=== PATIENT | female | born 1955 | race Caucasian/White ===

== ENCOUNTER 2022-03-18 13:53 | Outpatient (CLI) | payer MEDICARE, SELFPAY ==
--- NOTE | 2022-03-18 06:00 | DI.RAD_ITS ---
Exam(s) XR PAIN CLINIC CERVICAL SP 2V EXAM: XR PAIN CLINIC CERVICAL SP 2V CLINICAL HISTORY: Dx: Cervical Spondylosis TECHNIQUE: 2D and realtime digital imaging was performed. Radiologist not present. CONTRAST MATERIAL: None. COMPARISON: No exams were available for comparison FINDINGS: Fluoroscopy was provided for pain management therapy. Please refer to procedure report or details. Cumulative dose: Ka,r=1.62 mGy IMPRESSION: RADIATION DOSE DELIVERED:
[2022-03-18 14:20] VITALS: BP 105/64; PULSE 60; RESP 20; TEMP 36.6; O2SAT 96
--- NOTE | 2022-03-18 14:53 | PDOC.PAIN_ITS ---
Date of service: 03/18/22 Time of Service: 15:59 Pain Clinic Procedure Note Procedure Note Procedure Note: PROCEDURE NOTE LEFT SIDED CERVICAL MEDIAL BRANCH BLOCKS Date of Service: March 18, 2022 Patient: SASHA RUBIO Provider: Kartik Grant DO, MPH SASHA RUBIO has been referred to the [facility] for cervical medial branch blocks. Pre-operative diagnosis: Cervical Spondylosis without Myelopathy Post-operative diagnosis: Same Pre-procedure pain: VAS= 8/10 COMMENTS: She was previously evaluated in our clinic. SASHA was interviewed and the medical record were reviewed. There were no medical, pharmacologic, radiographic or other structural contraindications to attempting fluoroscopically guided local anesthetic cervical medial branch blocks. Risks and potential side effects were discussed. We also discussed the potential benefit(s) of the procedure with SASHA, and his voiced concerns were addressed. After she was completely informed about the procedure, the printed consent form was signed. A standard time-out procedure was performed. SASHA was placed in the lateral decubitus position on the fluoroscopy table with the effected side up. Automated blood pressure cuff and pulse oximeter were applied. The skin entry points for approaching the anatomic target points of the segmental medial branches of Left C2-C5 were identified with fluoroscopy and marked. The skin at the target site area was thoroughly prepared with Chlorhexadine. The skin was then draped. Next, a 25 gauge 1.5 spinal needle was placed under fluoroscopic guidance down on to the target point (the articular pillar) for each respective segmental medial branch. Position was confirmed in A/P and lateral views. Aspiration revealed no blood or clear fluid. Next, 0.25ml of omnipaque 240 was injected at each level. No contrast following a vascular or neural pattern was visualized under continuous fluoroscopy. Next, 0.25 ml of preservative-free 0.5% bupivicaine was injected at each level. (49 mls of Omnipaque was wasted) SASHA's vital signs were stable throughout the procedure and were as recorded in the docflowsheet by the nursing staff. Provacative testing using the Modified Whiting's facet loading test Left side Directly before the block VAS (0-10) = 8/10 5 minutes after the block VAS (0-10) = 3/10 Percentage relief obtained with this diagnostic block 80% Any improved physical functioning directly after the blocks? She can move her neck much better Follow up plans and appointments were discussed with SASHA. SASHA was instructed to keep careful note of how the usual pain was modified by these injections. Specifically, the patient was asked to keep a pain diary for the next 24 hours using a numeric pain scale of 0-10 and report these results at the follow-up visit. Post procedure instruction was given as documented in the nursing documentation and having met discharge criteria, he was discharged from the [facility] Management [facility]. Based on the medial branches blocked today, if they patient has adequate relief and we are able to proceed to radiofrequency ablation, the treatment should re sult in the denervation of the Left C2-C3, C3-C4, and C4-C5 facet joints. We would expect to denervate a total of 3 facets during the radiofrequency ablation. COMMENTS: He will call back with his 0-4 hour post-procedure pain scores. Post- procedure pain: VAS= 3/10 Kartik Grant DO, MPH ABPMR-subspecialty board certification in Pain Medicine [facility]
[2022-03-18] MEDS: Bupivacaine 0.5% Pres-Free 10 ML VIAL IJ (15:12)
[2022-03-18 15:13] VITALS: BP 129/83; PULSE 89; RESP 13; O2SAT 100
[2022-03-18] MEDS: Omnipaque 240 MG/ML 50 ML BTL IJ (15:13)
== END 2022-03-18 13:54 | disposition home or self-care (01) ==
LOC: PC 13:54
PROVIDERS: PCP Internal Medicine; Visit Provider Preventive Medicine Occupational Medicine
DX: M47.812 Spondylosis without myelopathy or radiculopathy, cervical region (principal); M54.2 Cervicalgia
CPT/HCPCS: 64490; 64491; 64492; 72040; Q9967

== ENCOUNTER 2022-05-07 10:25 | Outpatient (CLI) | payer MEDICARE, SELFPAY ==
--- NOTE | 2022-05-07 07:30 | DI.RAD_ITS ---
Exam(s) XR PAIN CLINIC CERVICAL SP 2V EXAM: XR PAIN CLINIC CERVICAL SP 2V CLINICAL HISTORY: Dx: Cervical Spondylosis TECHNIQUE: 2D and realtime digital imaging was performed. Radiologist not present. CONTRAST MATERIAL: None. COMPARISON: No exams were available for comparison FINDINGS: Fluoroscopy was provided for pain management therapy. Please refer to procedure report or details. Radiation Exposure Index: Ka,r=2.35 mGy IMPRESSION: As above. RADIATION DOSE DELIVERED:
[2022-05-07 10:38] VITALS: BP 110/68; PULSE 81; RESP 20; TEMP 36.8; O2SAT 99
--- NOTE | 2022-05-07 11:17 | PDOC.PAIN_ITS ---
Date of service: 05/07/22 Time of Service: 12:27 Pain Clinic Procedure Note Procedure Note Procedure Note: CERVICAL MEDIAL BRANCH BLOCKS #2 SASHA RUBIO has been referred to the Pain Management Center for cervical medial branch blocks. COMMENTS: She did very well with her first CMBB. Pre-procedure pain VAS was 10/10 Dx: Cervical spondylosis without myelopathy JOANNE was interviewed and the medical record reviewed. There were no medical, pharmacologic, radiographic or other structural contraindications to attempting fluoroscopically guided local anesthetic cervical medial branch blocks. Risks and expected side effects as well as potential benefit of the procedure were reviewed with JOANNE, and JOANNE's voiced concerns addressed. The printed consent form was signed and witnessed. Standard time-out procedure was performed. Louiseas placed in the Right lateral decubitus position on the fluoroscopy table and automated blood pressure cuff and pulse oximeter applied. The skin entry points for approaching the anatomic target points of the segmental medial branches of Left Third Occipital Nerve (C2), C3, C4, and C5 were identified with fluoroscopy and marked. Following thorough Chlorhexadine preparation of the skin and draping and 1% lidocaine infiltration of the skin entry points and subcutaneous tissues, a 25 gauge spinal needle was placed under fluoroscopic guidance down on to the target point for each respective segmental medial branch. Position was confirmed in A/P and leteral views with 0.25ml of omnipaque 240 injected at each level. At each point I injected 0.3ml 0.5% bupivicaine. Joceline vital signs were stable throughout the procedure and were as recorded in the docflowsheet by the nursing staff. Follow up plans and appointments were discussed with JOANNE. JOANNE was instructed to keep careful note of how the usual pain was modified by these injections. Specifically, the patient was asked to keep a pain diary for the next 24 hours using a numeric pain scale of 0-10 and report these results at the follow-up visit. Post procedure instruction was given as documented in the nursing documentation and having met discharge criteria, Joceline was discharged from the Pain Management Center. Based on the medial branches blocked today, if they patient has adequate relief and we are able to proceed to radiofrequency ablation, the treatment should result in the denervation of the left C2-C3, C3-C4, and C4-C5 FACET JOINTS. We would expect to denervate a total of 3 facets during the radiofrequency ablation. COMMENTS: Post-procedure pain VAS was 8/10. Kartik Grant DO, MPH ABPMR-Pain Management [facility] CC: Seble Holman
[2022-05-07] MEDS: Omnipaque 240 MG/ML 50 ML BTL IJ (11:50)
[2022-05-07] MEDS: Lidocaine 2% Pres-Free 5 ML VIAL IJ (11:50)
[2022-05-07 11:55] VITALS: BP 121/58; PULSE 81; RESP 15; O2SAT 100
== END 2022-05-07 10:26 | disposition home or self-care (01) ==
LOC: PC 10:26
PROVIDERS: PCP Internal Medicine; Visit Provider Preventive Medicine Occupational Medicine
DX: M47.812 Spondylosis without myelopathy or radiculopathy, cervical region (principal); M54.2 Cervicalgia
CPT/HCPCS: 64490; 64491; 72040; Q9967

== ENCOUNTER 2022-05-20 12:35 | Outpatient (CLI) | payer MEDICARE, SELFPAY ==
[2022-05-20 12:59] VITALS: BP 112/67; PULSE 63; RESP 20; TEMP 36.6; O2SAT 100
[2022-05-20] MEDS: fentaNYL 100 MCG/2 ML VIAL IVP (13:42)
[2022-05-20] MEDS: Midazolam 2 MG/2 ML VIAL IVP (13:43)
[2022-05-20] MEDS: Lactated Ringers 500 ML 80 ML IV (13:43)
--- NOTE | 2022-05-20 14:06 | DI.RAD_ITS ---
Exam(s) XR PAIN CLINIC CERVICAL SP 2V EXAM: XR PAIN CLINIC CERVICAL SP 2V CLINICAL HISTORY: Dx: Cervical Spondylosis. TECHNIQUE: Fluoroscopy was provided for the referring physician for guidance with performing pain cl inic injection procedure. COMPARISON: No exams were available for comparison FINDINGS: Please see procedure note for details. Fluoro time: 46.1 seconds RADIATION DOSE DELIVERED: angel Parks=3.34 mGy
[2022-05-20 14:11] VITALS: BP 138/69; PULSE 66; RESP 18; O2SAT 96
[2022-05-20] MEDS: Dexamethasone Sod. Phos./Pres-Free 10 MG/ML VIAL IJ (14:28)
[2022-05-20] MEDS: Bupivacaine 0.5% Pres-Free 10 ML VIAL IJ (14:29)
[2022-05-20] MEDS: Lidocaine 2% Pres-Free 5 ML VIAL IJ (14:29)
--- NOTE | 2022-05-26 14:31 | PDOC.PAIN_ITS ---
Date of service: 05/20/22 Time of Service: 14:20 Pain Clinic Procedure Note Procedure Note Procedure Note: Cervical Radiofrequency with AVENOS Machine PROCEDURE NOTE Date of Service: May 20, 2022 Patient: SASHA RUBIO Provider: Kartik Grant DO, MPH Pre Operative Diagnosis: Cervical Spondylosis without Myelopathy Post Operative Diagnosis: Same Pre-procedure pain: VAS 10/10 PROCEDURE: 1. Left/Right C2-C3 facet joint radiofrequency denervation 2.Left/Right C3-C4 facet joint radiofrequency denervation 3.Left/Right C4-C5 facet joint radiofrequency denervation SASHA RUBIO was brought to the procedure suite and placed on the exam table in a comfortable lateral recumbent position. The place for the needle placement was obtained by manual palpation as well as radiographic confirmation. The sterile field was prepped by chlorhexidine and sterile drapes. Local anesthesia, both superficial and deep was provided by local infiltration of 3 ml Lidocaine 1%. Using fluoroscopic guidance, A 17g 50 mm radiofrequency introducer needle with a 2 mm active tip was placed overlying the [right/left] C4 cervical vertebra from the lateral approach and was advanced until bony contact was felt with the articular pillar. Attempted aspiration revealed no blood or cerebrospinal fluid. Motor testing was then performed with 2.0 volts and no upper extremity motor stimulation was observed. 1 ml of 2% Lidocaine was injected through the RF needle. A radiofrequency lesion of the LEFT medial branch of C2 (Third Occipital Nerve) was then performed at 80 degrees Celsius for 2 minutes and 30 seconds. The same procedure was repeated for LEFT C3, C4 and C5 medial branches. POST PROCEDURE EVALUATION: IMPRESSION: 1. Medication given is documented in the MAR 2. Follow up plan: We will call the patient in 1-3 weeks. 3. Estimated Blood Loss: <5ml 4. Fluoroscopy time: Documented in the EMR Follow up plans and appointments were discussed with the SASHA . Post procedure instruction was given as documented in nursing documentation and marinelli jonathan met discharge criteria, SASHA was discharged from the Pain Management Center. COMMENTS: No apparent complications. Post-procedure pain: VAS=5_/10. I personally performed this entire procedure. Kartik Grant DO, MPH [facility]-Pain Management [facility]
== END 2022-05-20 12:36 | disposition home or self-care (01) ==
LOC: PC 12:36
PROVIDERS: PCP Internal Medicine; Visit Provider Preventive Medicine Occupational Medicine
DX: M47.812 Spondylosis without myelopathy or radiculopathy, cervical region (principal)
CPT/HCPCS: 64633; 64634; 72040; J2250; J3010

== ENCOUNTER 2022-10-05 15:09 | Outpatient (CLI) | payer MEDICARE, SELFPAY ==
--- NOTE | 2022-10-05 | DI.RAD_ITS ---
Exam(s) XR WRIST RT COMPLETE EXAM: XR WRIST RT COMPLETE CLINICAL HISTORY: LUMP ON R WRIST--R22.31. TECHNIQUE: 2D digital imaging was performed. Three views. COMPARISON: No exams were available for comparison FINDINGS: BONES: No acute fracture is present. No bony destructive lesion is seen. JOINTS: The carpal bones are normally aligned. SOFT TISSUE: Focal area of swelling at the ulnar aspect of the wrist. Chronic appearing calcificatio n adjacent to the triquetrum. IMPRESSION: Medial soft tissue swelling. DATA REPOSITORY: RADIATION DOSE DELIVERED:
== END 2022-10-05 15:29 ==
LOC: DI 15:17
PROVIDERS: PCP Internal Medicine; Visit Provider Radiology Radiation Oncology
DX: M79.89 Other specified soft tissue disorders (principal); R22.31 Localized swelling, mass and lump, right upper limb
CPT/HCPCS: 73110

== ENCOUNTER 2022-12-25 08:02 | Day surgery (SDC) | payer OTHER, SELFPAY ==
[2022-12-25 08:10] VITALS: BP 131/84; PULSE 81; RESP 16; TEMP 36.5; O2SAT 97
[2022-12-25] MEDS: Tropicam./Phenyleph. (1/2.5%) 5 ML BTL OS ×3 (08:19→08:30)
--- NOTE | 2022-12-25 08:32 | ANES.PREOP_ITS ---
General Info Date of Service Date Performed: 12/25/22 Height: 5 ft 6 in Weight: 89.2 kg Body Mass Index (BMI): 31.7 Surgical Procedure: Operation Date: 12/25/22 09:55 Proposed Procedure Side Surgeon p Cataract Extraction with IOL Implant Left Brodie Wayne MD Meds Allergies and Home Medications Allergies Allergy/AdvReac Type Severity Reaction Status Date / Time morphine Allergy Intermediate Hives Verified 12/25/22 08:14 oxycodone Allergy Unknown Verified 12/25/22 08:14 tramadol Allergy Unknown Verified 12/25/22 08:14 Home Medication Medication Instructions Recorded atorvastatin 20 mg tablet 20 mg PO DAILY 08/17/19 cyclobenzaprine 10 mg tablet 10 mg PO HS 08/17/19 duloxetine 60 mg capsule,delayed 60 mg PO DAILY 08/17/19 release sprinkle ketoconazole 2 % shampoo 1 applic topical .once daily 08/17/19 ketoconazole 2 %-hydrocortisone 1 applic topical BID 08/17/19 2.5 % topical cream rabeprazole 20 mg tablet,delayed 20 mg PO DAILY 08/17/19 release calcium carbonate 600 mg calcium 600 mg PO DAILY 09/26/19 (1,500 mg) tablet (Calcium) omega-3 fatty acids 1,000 mg 1,200 mg PO DAILY 09/26/19 capsule (Fish Oil Concentrate) biotin 1 mg tablet 1 mg PO DAILY 11/05/21 cholecalciferol (vitamin D3) 25 25 mcg PO DAILY 11/05/21 mcg (1,000 unit) tablet hydrocortisone 2.5 % topical cream 1 applic topical BID PRN 11/05/21 lorazepam 0.5 mg tablet 0.5 mg PO DAILY PRN 11/05/21 magnesium oxide 400 mg (241.3 mg 400 mg PO DAILY 11/05/21 magnesium) tablet riboflavin (vitamin B2) 100 mg 100 mg PO BID 11/05/21 tablet sumatriptan succinate 50 mg tablet See Rx Instructions PO .COMPLEX 11/05/21 Current Visit Medications: Current Medications Generic Name Dose Route Start Last Admin Trade Name Freq PRN Reason Stop Dose Admin Acetaminophen 1,000 mg 12/25/22 06:00 Acetaminophen 500 Mg Tab PO 01/24/23 05:59 Q4H PRN PRN Balanced Salt Solution 500 ml 12/25/22 06:00 Balanced Salt Soln.-Plus 500 Ml Bag OP 01/24/23 05:59 DIRECTED KWABENA Miscellaneous Medication 0 ml 12/25/22 06:00 Prednisolone 1%, Moxifloxacin 0.5%, Nepafenac 0.1% 5ml Btl OS 01/24/23 05:59 DIRECTED KWABENA Miscellaneous Medication 0 ml 12/25/22 06:00 12/25/22 08:30 Tropicam./Phenyleph. (1/2.5%) 5 Ml Btl OS 01/24/23 05:59 1 drp DIRECTED KWABENA Administration Tetracaine HCl 0 ml 12/24/22 09:00 Tetracaine 0.5% 5 Ml Btl OS 01/23/23 08:59 DIRECTED KWABENA PFSH Active Problems Active Problems: Problem Status Onset Code Posterior subcapsular age-related cataract of left eye H25.042 Cortical age-related cataract, left eye H25.012 Nuclear age-related cataract, left eye H25.12 Migraine headache without aura G43.009 Cervical spondylosis without myelopathy M47.812 Medical History Medical History Anxiety Barretts esophagus Capillary leak syndrome Cervical radiculopathy Colon cancer screening Conjunctival edema Depressive disorder Drug allergy Encounter for preventative adult health care examination Endometriosis H/O screening mammography History of prediabetes per pt. states this is no longer an issue Hx of hemorrhoids Hx of migraines Hyperlipidemia Low back pain Malignant neoplasm of female breast 07/21/21 Obesity Pain, joint, shoulder, left UTI (urinary tract infection) Surgical History Surgical History H/O: hysterectomy History of Newton fundoplication Tobacco Smoking/Tobacco Use Status: Former Tobacco Use Alcohol Alcohol Intake: current Alcohol intake frequency: holidays/special occasions only Substance Use Substance use: Never Substance use type: does not use Vital Signs and Lab Results Vital Signs Most Recent Vital Signs in EMR: Most Recent Vital Signs Temp Pulse Resp BP Pulse Ox 36.5 C 81 16 131/84 97 12/25/22 08:10 12/25/22 08:10 12/25/22 08:10 12/25/22 08:10 12/25/22 08:10 Lab Results Blood Type / Crossmatch: No Data to Display Complete Blood Count: No Data to Display Complete Metabolic Panel: No Data to Display Liver Function Panel: No Data to Display Coagulation Panel: 2 No Data to Display Cardiac Panel: No Data to Display Arterial Blood Gas: No Data to Display Venous Blood Gas: No Data to Display Pancreas Panel: No Data to Display Thyroid Panel: No Data to Display Infectious Disease: No Data to Display Blood Cultures: No Data to Display Toxicology Panel: No Data to Display Anesthesia Assessment and Plan Anesthesia History Personal History: No History of Anesthesia Complications Family History: No Family History of Anesthesia Complications Exercise Tolerance Exercise Tolerance: Metabolic Equivalents>4 Pertinent Negatives Pertinent Negatives: No Symptoms of GERD, No Major Cardiovascular Symptoms or Complaints and No Major Pulmonary Symptoms or Complaints Cardiac & Pulmonary Exam Cardiac Exam: Normal S1/S2 Heart Sounds Pulmonary Exam: Clear Bilateral Breath Sounds Implantable Cardiac Device Does patient have a Pacemaker or an ICD?: No Airway Exam Known Difficult Airway: No Mallampati Class: 2 Mouth Opening: Normal (> 3cm) Thyromental Distance: Greater than 3 cm Neck Range of Motion: Full ROM Neck Circumference: Normal Teeth Condition: Normal Dentition ASA Classification ASA Score: ASA 2 Emergency Case?: No NPO Status NPO Status: NPO Clears >2 hours, Solids >8 hours Anesthesia Plan Resuscitation Status: Full Code Anesthesia Technique: MAC Anesthesia Airway Planned: Natural Airway Monitors Used: Standard Monitors
[2022-12-25 08:49] VITALS: BMI 31.7
[2022-12-25] MEDS: Balanced Salt Soln.-PLUS 500 ML BAG OP (09:02)
[2022-12-25] MEDS: Lidocaine 1% Pres-Free 5 ML VIAL (09:04)
[2022-12-25] MEDS: Duovisc Viscoelastic System EACH 1 EACH (09:05)
[2022-12-25] MEDS: Phenylephrine/Lidocaine (15/10) MG/ML 1 ML VIAL (09:07)
[2022-12-25] MEDS: Povidone-Iodine Ophth 30 ML BTL (09:08)
[2022-12-25 09:22] VITALS: BP 128/71; PULSE 79; RESP 18; TEMP 36.6; O2SAT 100
--- NOTE | 2022-12-25 09:22 | W.PM.DSUDISC ---
Date of service: 12/25/22 Time of Service: 09: Discharge Plan Disposition Patient Disposition: Home Discharge Details Attending Provider: Brodie Wayne Primary Care Provider: Seble Holman Home Meds and New Rx's Prescriptions: No Action calcium carbonate [Calcium 600] 600 mg calcium (1,500 mg) tablet 600 mg PO DAILY omega-3 fatty acids [Fish Oil Concentrate] 1,000 mg capsule 1,200 mg PO DAILY biotin 1 mg tablet 1 mg PO DAILY hydrocortisone 2.5 % cream 1 applic topical BID PRN lorazepam 0.5 mg tablet 0.5 mg PO DAILY PRN magnesium oxide 400 mg (241.3 mg magnesium) tablet 400 mg PO DAILY sumatriptan succinate 50 mg tablet See Rx Instructions PO .COMPLEX Rx Instructions: take 1 tab at onset of headache; if no relief may repeat 1 tab after at least 2 hrs; max = 4 tabs/24 hr PO riboflavin (vitamin B2) 100 mg tablet 100 mg PO BID cholecalciferol (vitamin D3) 25 mcg (1,000 unit) tablet 25 mcg PO DAILY atorvastatin 20 mg tablet 20 mg PO DAILY cyclobenzaprine 10 mg tablet 10 mg PO HS duloxetine 60 mg capsule, delayed rel sprinkle 60 mg PO DAILY ketoconazole-hydrocortisone 2-2.5 % cream 1 applic TP BID ketoconazole 2 % shampoo 1 applic TP .once daily rabeprazole 20 mg tablet,delayed release (DR/EC) 20 mg PO DAILY Discharge Instructions Stand Alone Forms: Post-op Topical Cataract, Josselin Prado (DSU) Discharge Orders Discharge Orders: Discharge Order (Routine); Ordered 12/25/22 Ordered By: Brodie Wayne DS: Diagnosis Discharge Diagnosis (1) Posterior subcapsular age-related cataract of left eye: Status: Resolved (2) Cortical age-related cataract, left eye: Status: Resolved (3) Nuclear age-related cataract, left eye: Status: Resolved
--- NOTE | 2022-12-25 09:23 | ROE_ITS ---
Date of service: 12/25/22 Time of Service: : Operative Note Operative Note DATE OF PROCEDURE: 12/25/22 PRE-OP DIAGNOSIS: Nuclear/cortical/posterior subcapsular cataract, left eye POST-OP DIAGNOSIS: same PROCEDURE: Cataract extraction using phacoemulsification with intraocular lens implant, left eye SURGEON: Brodie Wayne ANESTHESIA TYPE: Local By Surgeon and MAC Refer to Anesthesia Record PATHOLOGY: none sent COMPLICATIONS: None Patient was transported to: same day Patient's condition: stable Implants: Elie Clareon [id number] Indications: Progressive decreased vision due to cataract, left eye Procedure Description: CATARACT SURGERY OPERATIVE REPORT PREOPERATIVE DIAGNOSIS: Nuclear/cortical/posterior subcapsular cataract, left eye POSTOPERATIVE DIAGNOSIS: Same OPERATION: Cataract extraction using phacoemulsification with posterior chamber intraocular lens implant, left eye. IOL: IOL Registered Clinical Dietitian/Model: Elie Clareon [id number] IOL Power: + 22.0 diopters IOL Serial Number: [id number] Optic Diameter: 6.0mm Haptic/Overall Diameter: 13.0mm PHACO INFO: ElieThe [place] Timesurion Vision System with OZil and Active Fluidics Cumulative Dispersed Energy (CDE): 7.68 seconds SURGEON: rBodie Wayne MD, DARELL ANESTHESIA: Monitored Anesthesia Care (MAC), with local sub-tenon's anesthetic infiltration COMPLICATIONS: None SPECIMENS: None INDICATIONS FOR PROCEDURE: The patient is a 67-year-old lady with history of diminished visual acuity in her left eye secondary to the development of nuclear/cortical/posterior subcapsular cataract. She is significantly symptomatic that she desires cataract surgery and attempt to improve and maximize her vision. The option of cataract surgery was offered to the patient and she wished to proceed. See office notes for detailed information. PROCEDURE: The correct surgical eye was identified and marked as the left eye and the pupil was dilated in the preoperative area using mydriatics and cycloplegics. The dilated pupil size was 8.0 mm. The patient elected to pr oceed without oral sedation. The patient was brought to the operating room where cardiopulmonary monitoring was instituted and surgical time-out was performed, confirming the correct operative eye and IOL power. Topical anesthesia was administered and ophthalmic povidone-iodine 5% was instilled into the conjunctival fornices. The kevin-ocular area was prepped with Betadine 10% solution and draped in the usual sterile fashion for intraocular surgery, including an aperture drape. A Tegaderm transparent film dressing was cut in half and used to cover the lashes and lid margins. Care was taken to sequester the lashes and lid margins under the Tegaderm dressing. A lid speculum was placed between the lids of the operative eye and the Elie LuxOR Revalia operating microscope was maneuvered into position. Fantasma scissors were then used to make a conjunctival buttonhole approximately 6mm posterior to the limbus in the inferonasal quadrant. Blunt dissection was carried out to expose bare sclera, and a blunt-tipped sub-tenon?s anesthesia cannula was introduced and passed posteriorly along the globe where non- preserved plain lidocaine was injected into posterior sub-Tenon?s space. A sideport knife was used to make a paracentesis port. Intraocular phenylephrine/lidocaine was injected into the anterior chamber. The anterior chamber was then filled with viscoelastic. A keratome knife was used construct a two-plane clear corneal tunnel extending 2.0mm into clear cornea. A flap was raised on the anterior capsule and capsulorhexis forceps were used to complete a continuous curvilinear capsulorhexis of 5.0 mm. Balanced salt solution was then used to perform cortical cleaving hydrodissection and nuclear hydrodelineation until the lens could be freely rotated within the capsular bag. The lens nucleus was then disassembled and removed within the capsular bag and iris plane using phacoemulsification. Residual cortical material was removed using the irrigation/aspiration handpiece. The posterior capsule was carefully polished to remove as much residual lens epithelial cells as safely possible. The capsular bag was then inflated and the anterior chamber deepened with viscoelastic. The lens implant described above was inserted into the capsular bag using the Elie Autonome Injector. A Kuglen hook was used to dial the IOL into position. Residual viscoelastic was then removed first from posterior to the IOL, then from the anterior chamber using the I/A handpiece. The lens implant was noted to center nicely within the capsular bag. The incisions were stromally hydrated, and the anterior chamber was reformed using BSS. Then 0.5cc of moxifloxacin 1.0mg/ml were injected into the capsular bag and anterior chamber. The incisions were checked with a Weck spear and found to be secure. Several drops of ophthalmic povidone-iodine 5% were then applied to the eye followed by two drops of Imprimis combination prednisolone/moxifloxacin/nepafenac solution. The drapes were removed and a clear plastic protective eye shield was placed over the eye. The patient was then returned to Same Day Surgery in stable condition.
--- NOTE | 2022-12-25 09:41 | W.ANESPOSTOP ---
Postoperative Evaluation Date, Time and Location Date Performed: 12/25/22 Time Performed: 09:26 Patient Location: Day Surgery Unit Vital Signs Most Recent Imported Vital Signs: Most Recent Vital Signs Temp Pulse Resp BP Pulse Ox 36.6 C 79 18 128/71 100 12/25/22 09:22 12/25/22 09:22 12/25/22 09:22 12/25/22 09:22 12/25/22 09:22 Pain Score Most Recent Pain Score: Most Recent Pain Score Pain Level 0 12/25/22 09:22 Assessment Mental Status: Awake (Alert & Oriented to Patient Baseline) Airway and Respiratory Function: Patent airway with normal (patient baseline) respiratory exam Cardiovascular Function: Hemodynamically Stable Hydration Status: Adequately Hydrated Nausea & Vomiting: No Nausea or Vomiting Pain: Pt. Denies Any Pain Peripheral Nerve Block: Patient did not receive a nerve block
--- NOTE | 2022-12-25 12:21 | NUR.NOTE ---
Patient called to report she had a bubble in the white part of her eye making it had to close. MD Dr. Wayne made aware. Nursing Note:
== END 2022-12-25 09:45 | disposition home or self-care (01) ==
LOC: SUR 08:08
PROVIDERS: PCP Internal Medicine; Visit Provider Ophthalmology
PROC: (CPT 66984; principal; 2022-12-25 09:45)
DX: H25.042 Posterior subcapsular polar age-related cataract, left eye (principal); H25.012 Cortical age-related cataract, left eye; H25.12 Age-related nuclear cataract, left eye
CPT/HCPCS: 66984; V2632

== ENCOUNTER 2023-01-08 06:00 | Day surgery (SDC) | payer MEDICARE, SELFPAY ==
[2023-01-08 06:33] VITALS: BP 111/65; PULSE 68; RESP 16; TEMP 36.6; O2SAT 99
[2023-01-08] MEDS: Tropicam./Phenyleph. (1/2.5%) 5 ML BTL OD ×3 (06:39→06:51)
--- NOTE | 2023-01-08 07:06 | ANES.PREOP_ITS ---
General Info Date of Service Date Performed: 01/08/23 Height: 5 ft 6 in Weight: 90.5 kg Body Mass Index (BMI): 32.2 Surgical Procedure: Operation Date: 01/08/23 07:40 Proposed Procedure Side Surgeon p Cataract Extraction with IOL Implant Right Brodie Wayne MD Meds Allergies and Home Medications Allergies Allergy/AdvReac Type Severity Reaction Status Date / Time morphine Allergy Intermediate Hives Verified 01/06/23 10:53 oxycodone Allergy Unknown Verified 01/06/23 10:53 tramadol Allergy Unknown Verified 01/06/23 10:53 Home Medication Medication Instructions Recorded atorvastatin 20 mg tablet 20 mg PO DAILY 08/17/19 cyclobenzaprine 10 mg tablet 10 mg PO HS 08/17/19 duloxetine 60 mg capsule,delayed 60 mg PO DAILY 08/17/19 release sprinkle rabeprazole 20 mg tablet,delayed 20 mg PO DAILY 08/17/19 release calcium carbonate 600 mg calcium 600 mg PO DAILY 09/26/19 (1,500 mg) tablet (Calcium) omega-3 fatty acids 1,000 mg 1,200 mg PO DAILY 09/26/19 capsule (Fish Oil Concentrate) biotin 1 mg tablet 1 mg PO DAILY 11/05/21 cholecalciferol (vitamin D3) 25 25 mcg PO DAILY 11/05/21 mcg (1,000 unit) tablet hydrocortisone 2.5 % topical cream 1 applic topical BID PRN 11/05/21 magnesium oxide 400 mg (241.3 mg 400 mg PO DAILY 11/05/21 magnesium) tablet riboflavin (vitamin B2) 100 mg 100 mg PO BID 11/05/21 tablet sumatriptan succinate 50 mg tablet See Rx Instructions PO .COMPLEX 11/05/21 Current Visit Medications: Current Medications Generic Name Dose Route Start Last Admin Trade Name Freq PRN Reason Stop Dose Admin Acetaminophen 1,000 mg 01/08/23 06:00 Acetaminophen 500 Mg Tab PO 02/07/23 05:59 Q4H PRN PRN Balanced Salt Solution 500 ml 01/08/23 06:00 Balanced Salt Soln.-Plus 500 Ml Bag OP 02/07/23 05:59 DIRECTED [facility] Miscellaneous Medication 0 ml 01/08/23 06:00 Prednisolone 1%, Moxifloxacin 0.5%, Nepafenac 0.1% 5ml Btl OD 02/07/23 05:59 DIRECTED [facility] Miscellaneous Medication 0 ml 01/08/23 06:00 01/08/23 06:51 Tropicam./Phenyleph. (1/2.5%) 5 Ml Btl OD 02/07/23 05:59 1 drp DIRECTED KWABENA Administration Tetracaine HCl 0 ml 01/08/23 06:00 Tetracaine 0.5% 4 Ml Btl OD 02/07/23 05:59 DIRECTED [facility] PFSH Active Problems Active Problems: Problem Status Onset Code Posterior subcapsular age-related cataract of left eye H25.042 Cortical age-related cataract, left eye H25.012 Nuclear age-related cataract, left eye H25.12 Migraine headache without aura G43.009 Cervical spondylosis without myelopathy M47.812 Medical History Medical History Anxiety Barretts esophagus Capillary leak syndrome Cervical radiculopathy Colon cancer screening Conjunctival edema Depressive disorder Drug allergy Encounter for preventative adult health care examination Endometriosis H/O screening mammography History of prediabetes per pt. states this is no longer an issue Hx of hemorrhoids Hx of migraines Hyperlipidemia Low back pain Malignant neoplasm of female breast 07/21/21 Obesity Pain, joint, shoulder, left UTI (urinary tract infection) Surgical History Surgical History H/O: hysterectomy History of Newton fundoplication Tobacco Smoking/Tobacco Use Status: Former Tobacco Use Alcohol Alcohol Intake: current Alcohol intake frequency: holidays/special occasions only Substance Use Substance use: Never Substance use type: does not use Vital Signs and Lab Results Vital Signs Most Recent Vital Signs in EMR: Most Recent Vital Signs Temp Pulse Resp BP Pulse Ox 36.6 C 68 16 111/65 99 01/08/23 06:33 01/08/23 06:33 01/08/23 06:33 01/08/23 06:33 01/08/23 06:33 Lab Results Blood Type / Crossmatch: No Data to Display Complete Blood Count: No Data to Display Complete Metabolic Panel: No Data to Display Liver Function Panel: No Data to Display Coagulation Panel: No Data to Display Cardiac Panel: No Data to Display Arterial Blood Gas: No Data to Display Venous Blood Gas: No Data to Display Pancreas Panel: No Data to Display Thyroid Panel: No Data to Display Infectious Disease: No Data to Display Blood Cultures: No Data to Display Toxicology Panel: No Data to Display Anesthesia Assessment and Plan Anesthesia History Personal History: No History of Anesthesia Complications Family History: No Family History of Anesthesia Complications Exercise Tolerance Exercise Tolerance: Metabolic Equivalents>4 Pertinent Negatives Pertinent Negatives: No Symptoms of GERD Cardiac & Pulmonary Exam Cardiac Exam: Normal S1/S2 Heart Sounds Pulmonary Exam: Clear Bilateral Breath Sounds Implantable Cardiac Device Does patient have a Pacemaker or an ICD?: No Airway Exam Known Difficult Airway: No Mallampati Class: 2 Mouth Opening: Normal (> 3cm) Thyromental Distance: Greater than 3 cm Neck Range of Motion: Full ROM Neck Circumference: Normal Teeth Condition: Normal Dentition ASA Classification ASA Score: ASA 2 Emergency Case?: No NPO Status NPO Status: NPO Clears >2 hours, Solids >8 hours Anesthesia Plan Resuscitation Status: Full Code Anesthesia Technique: MAC Anesthesia Airway Planned: Natural Airway Monitors Used: Standard Monitors
[2023-01-08 07:09] VITALS: BMI 32.2
--- NOTE | 2023-01-08 07:11 | W.PREOPHP ---
Assessment and Plan Assessment and plan (1) Nuclear age-related cataract, right eye: Status: Acute Assessment and plan: Assessment: Visually significant cataract of the right eye. Plan: Cataract extraction with lens implantation of the right eye. (2) Cortical age-related cataract, right eye: Status: Acute Assessment and plan: Assessment: Visually significant cataract of the right eye. Plan: Cataract extraction with lens implantation of the right eye. (3) Posterior subcapsular age-related cataract, right eye: Status: Acute Assessment and plan: Assessment: Visually significant cataract of the right eye. Plan: Cataract extraction with lens implantation of the right eye. History of Present Illness History of Present Illness Chief Complaint: Progressive decreased vision, right eye Narrative: The patient is a 67-year-old lady with history of progressive decreased vision in both eyes at both distance and near. On examination she was noted to have significant bilateral cataracts. She has already undergone cataract surgery in the left eye on 12/25/2022 she is doing well postoperatively. She now presents for cataract surgery in the right eye. Review of Systems All systems reviewed & are unremarkable except as noted in HPI and below PFSH All Active Problems (Updated 01/08/23 @ 07:15 by Brodie Wayne MD) Posterior subcapsular age-related cataract, right eye (Acute) Cortical age-related cataract, right eye (Acute) Nuclear age-related cataract, right eye (Acute) Migraine headache without aura (Acute) Cervical spondylosis without myelopathy (Acute) Medical History Anxiety Barretts esophagus Capillary leak syndrome Cervical radiculopathy Colon cancer screening Conjunctival edema Depressive disorder Drug allergy Encounter for preventative adult health care examination Endometriosis H/O screening mammography History of prediabetes per pt. states this is no longer an issue Hx of hemorrhoids Hx of migraines Hyperlipidemia Low back pain Malignant neoplasm of female breast 07/21/21 Obesity Pain, joint, shoulder, left UTI (urinary tract infection) Surgical History H/O: hysterectomy History of Newton fundoplication Family History Mother , AT 81 YRS OLD Alcohol abuse COPD (chronic obstructive pulmonary disease) Depression Maternal Aunt Colon cancer Paternal Grandfather Colon cancer Father Diabetes Sister Osteopenia Social History Smoking/Tobacco Use Status: Former Tobacco Use Quit Date: 04/19/89 Smoking risk assessment performed?: Yes Alcohol Intake: current Alcohol Intake frequency: holidays/special occasions only Drug use: Never Substance use type: does not use Household members: spouse Housing: house Number of Children: 3 Pets and animals: Yes Pets and animals: cat(s) What is your relationship status?: Panel score (0-1 are the most socially isolated patients): 1 What type of physical activity do you participate in: walking Seatbelt use: always Do you feel safe at home: Yes Do you feel safe in your relationship?: Yes Meds Allergies and Home Medications Allergies Allergy/AdvReac Type Severity Reaction Status Date / Time morphine Allergy Intermediate Hives Verified 01/06/23 10:53 oxycodone Allergy Unknown Verified 01/06/23 10:53 tramadol Allergy Unknown Verified 01/06/23 10:53 Home Medications Medication Instructions Recorded Confirmed Type atorvastatin 20 mg tablet 20 mg PO DAILY 08/17/19 01/08/23 History cyclobenzaprine 10 mg tablet 10 mg PO HS 08/17/19 01/08/23 History duloxetine 60 mg capsule,delayed 60 mg PO DAILY 08/17/19 01/08/23 History release sprinkle rabeprazole 20 mg tablet,delayed 20 mg PO DAILY 08/17/19 01/08/23 History release calcium carbonate 600 mg calcium 600 mg PO DAILY 09/26/19 01/08/23 History (1,500 mg) tablet (Calcium) omega-3 fatty acids 1,000 mg 1,200 mg PO DAILY 09/26/19 01/08/23 History capsule (Fish Oil Concentrate) biotin 1 mg tablet 1 mg PO DAILY 11/05/21 01/08/23 History cholecalciferol (vitamin D3) 25 25 mcg PO DAILY 11/05/21 01/08/23 History mcg (1,000 unit) tablet hydrocortisone 2.5 % topical cream 1 applic topical BID PRN 11/05/21 01/08/23 History magnesium oxide 400 mg (241.3 mg 400 mg PO DAILY 11/05/21 01/08/23 History magnesium) tablet riboflavin (vitamin B2) 100 mg 100 mg PO BID 11/05/21 01/08/23 History tablet sumatriptan succinate 50 mg tablet See Rx Instructions PO .COMPLEX 11/05/21 01/08/23 History Exam Eyes Other: Most recent ocular examination is significant for corrected visual acuity of 20/30 in the right thigh uncorrected vision 20/25 in the left eye. Extraocular motility is normal. Intraocular pressure is 15 OU. Slit-lamp examination is significant for moderate nuclear with mild cortical and trace posterior subcapsular cataract in the right eye. The left eye there is a well-positioned PCIOL with clear posterior capsule. Dilated funduscopic examination reveals disc cupping of 0.25 OU with normal vessels, macula, peripheral retina and vitreous. Resp Auscultation: clear to auscultation bilaterally Cardio Rate: regular rate Rhythm: regular rhythm Results Last Vital Signs Temp 36.6 C 01/08/23 06:33 Pulse 68 01/08/23 06:33 Resp 16 01/08/23 06:33 BP 111/65 01/08/23 06:33 Pulse Ox 99 01/08/23 06:33
[2023-01-08] MEDS: Lidocaine 1% Pres-Free 5 ML VIAL (07:34)
[2023-01-08] MEDS: Duovisc Viscoelastic System EACH 1 EACH (07:34)
[2023-01-08] MEDS: Povidone-Iodine Ophth 30 ML BTL (07:36)
[2023-01-08] MEDS: Phenylephrine/Lidocaine (15/10) MG/ML 1 ML VIAL (07:36)
[2023-01-08] MEDS: Balanced Salt Soln.-PLUS 500 ML BAG OP (07:37)
[2023-01-08] MEDS: Tetracaine 0.5% 4 ML BTL OD (07:38)
[2023-01-08 07:54] VITALS: BP 117/73; PULSE 69; RESP 16; TEMP 36.4; O2SAT 100
--- NOTE | 2023-01-08 07:55 | W.PM.DSUDISC ---
Date of service: 01/08/23 Time of Service: 07:55 Discharge Plan Disposition Condition: Good Discharge Details Attending Provider: Brodie Wayne Primary Care Provider: Seble Holman Home Meds and New Rx's Prescriptions: No Action calcium carbonate [Calcium 600] 600 mg calcium (1,500 mg) tablet 600 mg PO DAILY omega-3 fatty acids [Fish Oil Concentrate] 1,000 mg capsule 1,200 mg PO DAILY biotin 1 mg tablet 1 mg PO DAILY hydrocortisone 2.5 % cream 1 applic topical BID PRN magnesium oxide 400 mg (241.3 mg magnesium) tablet 400 mg PO DAILY sumatriptan succinate 50 mg tablet See Rx Instructions PO .COMPLEX Rx Instructions: take 1 tab at onset of headache; if no relief may repeat 1 tab after at least 2 hrs; max = 4 tabs/24 hr PO riboflavin (vitamin B2) 100 mg tablet 100 mg PO BID cholecalciferol (vitamin D3) 25 mcg (1,000 unit) tablet 25 mcg PO DAILY atorvastatin 20 mg tablet 20 mg PO DAILY cyclobenzaprine 10 mg tablet 10 mg PO HS duloxetine 60 mg capsule, delayed rel sprinkle 60 mg PO DAILY rabeprazole 20 mg tablet,delayed release (DR/EC) 20 mg PO DAILY Discharge Instructions Stand Alone Forms: Post-op Topical Cataract, Josselin Prado (DSU) Discharge Orders Discharge Orders: Discharge Order (Routine); Ordered 01/08/23 Ordered By: Brodie Wayne DS: Diagnosis Discharge Diagnosis (1) Nuclear age-related cataract, right eye: Status: Resolved (2) Cortical age-related cataract, right eye: Status: Resolved (3) Posterior subcapsular age-related cataract, right eye: Status: Resolved
--- NOTE | 2023-01-08 07:57 | W.PM.OP ---
Date of service: 01/08/23 Time of Service: 07:57 Operative Note Operative Note DATE OF PROCEDURE: 01/08/23 PRE-OP DIAGNOSIS: Nuclear/cortical/posterior subcapsular cataract, right eye POST-OP DIAGNOSIS: same PROCEDURE: Cataract extraction using phacoemulsification with intraocular lens implant, right eye SURGEON: Brodie Wayne ANESTHESIA TYPE: Local By Surgeon and MAC Refer to Anesthesia Record ESTIMATED BLOOD LOSS: 0 PATHOLOGY: none sent COMPLICATIONS: None Patient was transported to: same day Patient's condition: stable Implants: Elie Clareon [id number] Indications: Progressive decreased vision due to cataract, right eye Procedure Description: CATARACT SURGERY OPERATIVE REPORT PREOPERATIVE DIAGNOSIS: Nuclear/cortical/posterior subcapsular cataract, right eye POSTOPERATIVE DIAGNOSIS: Same OPERATION: Cataract extraction using phacoemulsification with posterior chamber intraocular lens implant, right eye. IOL: IOL Gas Operations Superintendent/Model: Elie Clareon [id number] IOL Power: + 22.0 diopters IOL Serial Number: [id number] Optic Diameter: 6.0mm Haptic/Overall Diameter: 13.0mm PHACO INFO: Elie Pickliveurion Vision System with OZil and Active Fluidics Cumulative Dispersed Energy (CDE): 5.84 seconds SURGEON: Brodie Wayne MD, DARELL ANESTHESIA: Monitored Anesthesia Care (MAC), with local sub-tenon's anesthetic infiltration COMPLICATIONS: None SPECIMENS: None INDICATIONS FOR PROCEDURE: The patient is a 67-year-old lady with history of diminished visual acuity in her right eye secondary to the development of nuclear/cortical/posterior subcapsular cataract. She has already undergone cataract surgery in the left eye and is doing well postoperatively. She now presents for cataract surgery in the right eye. See office notes for detailed information. PROCEDURE: The correct surgical eye was identified and marked as the right eye and the pupil was dilated in the preoperative area using mydriatics and cycloplegics. The dilated pupil size was 7.0 mm. The patient elected to proceed without oral sedation. The patient was brought to the operating room where cardiopulmonary monitoring was instituted and surgical time-out was performed, confirming the correct operative eye and IOL power. Topical anesthesia was administered and ophthalmic povidone-iodine 5% was instilled into the conjunctival fornices. The kevin-ocular area was prepped with Betadine 10% solution and draped in the usual sterile fashion for intraocular surgery, including an aperture drape. A Tegaderm transparent film dressing was cut in half and used to cover the lashes and lid margins. Care was taken to sequester the lashes and lid margins under the Tegaderm dressing. A lid speculum was placed between the lids of the operative eye and the Eliseo-Del operating microscope was maneuvered into position. Fantasma scissors were then used to make a conjunctival buttonhole approximately 6mm posterior to the limbus in the inferonasal quadrant. Blunt dissection was carried out to expose bare sclera, and a blunt-tipped sub-tenon?s anesthesia cannula was introduced and passed posteriorly along the globe where non-preserved plain lidocaine was injected into posterior sub-Tenon?s space. A sideport knife was used to make a paracentesis port. Intraocular phenylephrine/lidocaine was injected into the anterior chamber. The anterior chamber was then filled with viscoelastic. A keratome knife was used to construct a two--plane clear corneal tunnel extending 2.0mm into clear cornea. A flap was raised on the anterior capsule and capsulorhexis forceps were used to complete a continuous curvilinear capsulorhexis of 5.0 mm. Balanced salt solution was then used to perform cortical cleaving hydrodissection and nuclear hydrodelineation until the lens could be freely rotated within the capsular bag. The lens nucleus was then disassembled and removed within the capsular bag and iris plane using phacoemulsification. Residual cortical material was removed using the I/A handpiece. The posterior capsule was carefully polished to remove as much residual lens epithelial cells as safely possible. The capsular bag was then inflated and the anterior chamber deepened with cohesive viscoelastic. The lens implant described above was inserted into the capsular bag using the Elie Autonome Injector. A Kuglen hook was used to dial the IOL into position. Residual viscoelastic was then removed first from posterior to the IOL, then from the anterior chamber using the I/A handpiece. The lens implant was noted to center nicely within the capsular bag. The incisions were stromally hydrated, and the anterior chamber was reformed using BSS. Then 0.5cc of moxifloxacin 1.0mg/ml were injected into the capsular bag and anterior chamber. The incisions were checked with a Weck spear and found to be secure. Several drops of ophthalmic povidone-iodine 5% were then applied to the eye followed by two drops of Imprimis combination prednisolone/moxifloxacin/nepafenac solution. The drapes were removed and a clear plastic protective eye shield was placed over the eye. The patient was then returned to [facility] Day Surgery in stable condition.
--- NOTE | 2023-01-08 08:00 | W.ANESPOSTOP ---
Postoperative Evaluation Date, Time and Location Date Performed: 01/08/23 Time Performed: 08:01 Patient Location: Day Surgery Unit Vital Signs Most Recent Imported Vital Signs: Most Recent Vital Signs Temp Pulse Resp BP Pulse Ox 36.4 C L 69 16 117/73 100 01/08/23 07:54 01/08/23 07:54 01/08/23 07:54 01/08/23 07:54 01/08/23 07:54 Pain Score Most Recent Pain Score: Most Recent Pain Score Pain Level 0 01/08/23 07:54 Assessment Mental Status: Awake (Alert & Oriented to Patient Baseline) Airway and Respiratory Function: Patent airway with normal (patient baseline) respiratory exam Cardiovascular Function: Hemodynamically Stable Hydration Status: Adequately Hydrated Nausea & Vomiting: No Nausea or Vomiting Pain: Pt. Denies Any Pain Peripheral Nerve Block: Patient did not receive a nerve block
--- NOTE | 2023-01-08 08:04 | W.ANESPOSTOP ---
Postoperative Evaluation Vital Signs Most Recent Imported Vital Signs: Most Recent Vital Signs Temp Pulse Resp BP Pulse Ox 36.4 C L 69 16 117/73 100 01/08/23 07:54 01/08/23 07:54 01/08/23 07:54 01/08/23 07:54 01/08/23 07:54 Most Recent Vital Signs Temp Pulse Resp BP Pulse Ox 36.4 C L 69 16 117/73 100 01/08/23 07:54 01/08/23 07:54 01/08/23 07:54 01/08/23 07:54 01/08/23 07:54 Pain Score Most Recent Pain Score: Most Recent Pain Score Pain Level 0 01/08/23 07:54
== END 2023-01-08 07:55 | disposition home or self-care (01) ==
PROVIDERS: PCP Internal Medicine; Visit Provider Ophthalmology
PROC: (CPT 66984; principal; 2023-01-08 07:30)
DX: H25.11 Age-related nuclear cataract, right eye (principal); H25.011 Cortical age-related cataract, right eye; H25.041 Posterior subcapsular polar age-related cataract, right eye; Z98.42 Cataract extraction status, left eye
CPT/HCPCS: 66984; V2632

== ENCOUNTER 2023-05-19 15:06 | Outpatient (CLI) | payer MEDICARE, SELFPAY ==
--- NOTE | 2023-05-19 06:00 | DI.RAD_ITS ---
Exam(s) XR PAIN CLINIC CERVICAL SP 2V EXAM: XR PAIN CLINIC CERVICAL SP 2V CLINICAL HISTORY: Dx: Cervical Radiculopathy TECHNIQUE: 2D and realtime digital imaging was performed. CONTRAST MATERIAL: Refer to procedure report. COMPARISON: No exams were available for comparison FINDINGS: Fluoroscopy was provided for Dr. Grant during the performance of a cervical epidural steroid injectio n. Please refer to the procedure report for complete details. Ka,r=2.51 mGy IMPRESSION: RADIATION DOSE DELIVERED:
[2023-05-19 15:13] VITALS: BP 127/84; PULSE 82; RESP 20; TEMP 36.7; O2SAT 97
[2023-05-19 15:53] VITALS: BP 147/94; PULSE 93; RESP 18; O2SAT 100
--- NOTE | 2023-05-19 15:54 | PDOC.PAIN ---
Date of service: 05/19/23 Time of Service: 15:54 Pain Managment Procedure Note Procedure Note Procedure Note: Procedure Note Cervical Interlaminar Epidural Steroid Injection Date of Service: May 19, 2023 Patient:? Hafsa Biswas? Provider:? Jeferson Grant DO, MPH Hafsa has been referred to the [facility] for cervical epidural steroid injection.? Pre-operative diagnosis: Cervical Radiculopathy Post-operative diagnosis: Same Pre-procedure pain: VAS= 7/10 Comments: I previously evaluated her in the office. Hafsa was interviewed and the medical record was reviewed.? There were no medical, pharmacologic, radiographic or other structural contraindications to attempting fluoroscopically guided cervical interlaminar epidural steroid injection.? Risks, potential side effects, indications, and potential benefits of the procedure were reviewed with Hafsa.? Questions and concerns were addressed.? After it was clear that the patient was fully informed about the procedure, the printed consent form was signed by the patient and myself.? Hafsa was placed in the prone position on the fluoroscopy table and automated blood pressure cuff as well as pulse oximeter was applied. A standard time-out procedure was performed. The skin entry point for entering the epidural space by a midline C7-T1 interlaminar approach was identified under fluoroscopy and marked.? The skin entry point was thoroughly cleaned with Chlorhexadine preparation and the skin was draped.? Next a mixture of 2 mls of 1% lidocaine was infiltrated into the area of the planned skin entry point and underlying subcutaneous tissues.? Next an 18 gauge Tuohy needle was placed under fluoroscopic guidance and with loss of resistance technique into the epidural space utilizing multiple AP and 55 degree contralateral fluoroscopic views.? Upon correct needle placement and loss of resistance, there were no paresthesia or return of blood or CSF through the needle. Next 1 mls of preservative-free Omnipaque 240 was injected with clear epidural spread in the A/P and oblique views. Next, a solution of 15 mg of preservative-free Dexamethasone was injected. This was followed with 1ml of preservative-free normal saline. No unusual discomfort was expressed by Hafsa. The needle was withdrawn without difficulty. (49 mls of Omnipaque and 5 mg of Dexamethasone was wasted) Hafsa was observed and was without hemodynamic, neurologic, or allergic reactions.? Fluoroscopic images were digitally archived. Hafsa's vital signs were stable throughout the procedure and were as recorded in the doc flowsheet by the nursing staff.? If given, dosages of intravenous drugs for anxiolysis and analgesia were documented in MAR. Follow up plans and appointments were discussed with Hafsa.? Post procedure instruction was given as documented in nursing documentation and having met discharge criteria, [facility] the [facility]. A retrospective review of interlaminar cervical ESIs found that approximately two-thirds of patients with symptomatic cervical radiculopathy from disc herniation were able to avoid surgery for up to 1 year with treatment. Success rate was improved with earlier injection (< 100 days from diagnosis). Nakita EL, Isabela V, Travis L, James AN, Salmeron PATRICIA. Cervical epidural steroid injections for symptomatic disc herniations. J Spinal Disord Tech. 2006 August;19(3):183-6. ? COMMENTS: No apparent complications. Post-procedure pain: VAS= 7/10. Hafsa to contact [facility] as needed. If at least 50% improvement in pain and/or function for at least 3 months is achieved, this procedure can be repeated. I personally completed the entire procedure. JEFERSON GRANT DO, MPH ABPMR-subspecialty board certification in Pain Medicine [facility]
[2023-05-19] MEDS: Epidural Tray 1 EACH MC (15:56)
[2023-05-19] MEDS: Omnipaque 240 MG/ML 50 ML BTL IJ (15:57)
[2023-05-19] MEDS: Dexamethasone Sod. Phos./Pres-Free 10 MG/ML VIAL IJ (15:57)
== END 2023-05-19 15:07 | disposition home or self-care (01) ==
LOC: PC 15:07
PROVIDERS: PCP Internal Medicine; Visit Provider Preventive Medicine Occupational Medicine
DX: M54.2 Cervicalgia (principal); M54.12 Radiculopathy, cervical region
CPT/HCPCS: 00123; 62321; 72040; J1100; Q9967

== ENCOUNTER 2024-07-13 08:59 | Outpatient (CLI) | payer MEDICARE, SELFPAY ==
--- NOTE | 2024-07-13 06:00 | DI.RAD_ITS ---
Exam(s) XR PAIN CLINIC CERVICAL SP 2V EXAM: XR PAIN CLINIC CERVICAL SP 2V CLINICAL HISTORY: DX: Cervical Spondylosis TECHNIQUE: 2D and realtime digital imaging was performed. Radiologist not present. CONTRAST MATERIAL: None. COMPARISON: No exams were available for comparison FINDINGS: Fluoroscopy was provided for pain management therapy. Cervical spine level therapeutic injection. Please refer to procedure report or details. Radiation Exposure Index: Ka,r=2.88 mGy IMPRESSION: As above. RADIATION DOSE DELIVERED:
[2024-07-13 09:07] VITALS: BP 120/83; PULSE 66; RESP 20; TEMP 36.7; O2SAT 98
[2024-07-13 10:00] VITALS: PULSE 69; O2SAT 98
[2024-07-13 10:01] VITALS: BP 109/46; PULSE 70; PULSE 77; RESP 14; O2SAT 99
[2024-07-13 10:10] VITALS: PULSE 70; RESP 9; O2SAT 100
--- NOTE | 2024-07-13 10:14 | PDOC.PAIN_ITS ---
Date of service: 07/13/24 Time of Service: 10:14 Pain Managment Procedure Note Procedure Note Procedure Note: PROCEDURE NOTE LEFT SIDED CERVICAL MEDIAL BRANCH BLOCKS Date of Service: July 13, 2024 Patient: Hafsa Biswas Provider: Kartik Grant DO, MPH Hafsa Biswas has [facility] for cervical medial branch blocks. Pre-operative diagnosis: Cervical Spondylosis without Myelopathy ICD-10 M47.812 Post-operative diagnosis: Same Pre-procedure pain: VAS= 7/10 COMMENTS: This is a confirmatory block as she had cervical RFA in the past with excellent relief for >2 years. Magalywas interviewed and the medical records were reviewed. There were no medical, pharmacologic, radiographic or other structural contraindications to attempting fluoroscopically guided local anesthetic cervical medial branch blocks. Risks and potential side effects were discussed. I also discussed the potential benefit(s) of the procedure with Hafsa, and voiced concerns were addressed. After Hafsa was completely informed about the procedure, the printed consent form was signed. A standard time-out procedure was performed. Hafsa was placed in the lateral decubitus position on the fluoroscopy table with the effected side up. Automated blood pressure cuff and pulse oximeter were applied. The skin entry points for approaching the anatomic target points of the segmental medial branches of Left C2,C3,C4, & C5 were identified with fluoroscopy and marked. The skin at the target site area was thoroughly prepared with Chlorhexadine. The skin was then draped. Next, a 25 gauge 3.5 spinal needle was placed under fluoroscopic guidance down on to the target point (the articular pillar) for each respective segmental medial branch. Position was confirmed in A/P and lateral views. Aspiration revealed no blood or clear fluid. Next, 0.25ml of omnipaque 240 was injected at each level. No contrast following a vascular or neural pattern was visualized under continuous fluoroscopy. Next, 0.25 ml of preservative-free 0.5% bupivicaine was injected at each level. (49 mls of Omnipaque was wasted) There was no unusual discomfort expressed by Hafsa. The needles were withdrawn without difficulty. Hafsa was observed and was without hemodynamic, neurologic, or allergic reactions.? Fluoroscopic images were digitally archived. Hafsa's vital signs were stable throughout the procedure and were as recorded in the docflowsheet by the nursing staff. Provacative testing using the Modified Whiting's facet loading test Left side Directly before the block VAS (0-10) = 7/10 Five minutes after the block VAS (0-10) = 0/10 Percentage relief obtained with this diagnostic block 100% Any improved physical functioning directly after the blocks? Able to move her neck without pain. Follow up plans and appointments were discussed with Hafsa. Hafsa was instructed to keep careful note of how the usual pain was modified by these injections. Specifically, to keep a pain diary for the next 4 hours using a numeric pain scale of 0-10 and report these results. Post procedure instruction was given as documented in the nursing documentation and having met discharge criteria, the patient was [facility] the [facility]. Based on the medial branches blocked today, if Hafsa has adequate relief and we are able to proceed to radiofrequency ablation, the treatment should result in the denervation of the Left C2-C3, C3-C4 and C4-C5 facet joints. We would expect to denervate a total of 3 facets during the radiofrequency ablation. COMMENTS: No apparent complications. Post-procedure pain: VAS= 0/10 Hafsa will call back with 0-4 hour post-procedure pain scores. I personally performed the entire procedure. KARTIK GRANT DO, MPH ABPM&R-subspecialty board certification in Pain Medicine [facility] Coding Conscious Sedation used for procedure: No CPT Codes: CMBB (includes Fluoro) Cervical/Thoracic, single lvl - 89024 ([id number] ~G) Left CMBB (includes Fluoro) Cervical/Thoracic, 2nd lvl - 89535 ([id number] ~G) Left CMBB (includes Fluoro) Cervical/Thoracic, 3rd & add'l lvls - 54562 (4010044 ~G) Left Additional Codes: Date of Service (47156) Date of service: 07/13/24
[2024-07-13] MEDS: Bupivacaine 0.5% Pres-Free 10 ML VIAL IJ (10:17)
[2024-07-13] MEDS: Nerve Block Tray 1 EACH MC (10:17)
[2024-07-13] MEDS: Omnipaque 240 MG/ML 50 ML BTL IJ (10:17)
== END 2024-07-13 09:00 | disposition home or self-care (01) ==
LOC: PC 08:59
PROVIDERS: PCP Internal Medicine; Visit Provider Preventive Medicine Occupational Medicine
DX: M54.2 Cervicalgia (principal); M47.812 Spondylosis without myelopathy or radiculopathy, cervical region
CPT/HCPCS: 64490; 64491; 64492; 72040; J0665; Q9967

== ENCOUNTER 2024-08-23 06:57 | Outpatient (CLI) | payer MEDICARE, SELFPAY ==
[2024-08-23] VITALS (13 sets, daily range): BP systolic 102–122; BP diastolic 39–60; PULSE 68–84; RESP 0–20; TEMP 36.7; O2SAT 98–100
--- NOTE | 2024-08-23 06:00 | DI.RAD_ITS ---
Exam(s) XR PAIN CLINIC CERVICAL SP 2V EXAM: XR PAIN CLINIC CERVICAL SP 2V CLINICAL HISTORY: DX: Cervical Spondylosis. TECHNIQUE: Fluoroscopy was provided for the referring physician for guidance with performing pain cl inic injection procedure. COMPARISON: No exams were available for comparison FINDINGS: Please see procedure note for details. Fluoro time: 39.5 seconds RADIATION DOSE DELIVERED: Kaseyr=3.28 mGy
[2024-08-23] MEDS: fentaNYL 100 MCG/2 ML VIAL IVP (08:24)
[2024-08-23] MEDS: Lactated Ringers 500 ML 80 ML IV (08:26)
[2024-08-23] MEDS: Midazolam 2 MG/2 ML VIAL IVP (08:26)
[2024-08-23] MEDS: Nerve Block Tray 1 EACH MC (09:03)
[2024-08-23] MEDS: Dexamethasone Sod. Phos./Pres-Free 10 MG/ML VIAL IJ (09:03)
[2024-08-23] MEDS: Lidocaine 2% Pres-Free 5 ML VIAL IJ (09:09)
[2024-08-23] MEDS: Bupivacaine 0.5% Pres-Free 10 ML VIAL IJ (09:09)
--- NOTE | 2024-08-23 10:50 | PDOC.PAIN ---
Date of service: 08/23/24 Time of Service: 09:00 Pain Managment Procedure Note Procedure Note Procedure Note: PROCEDURE NOTE LEFT Cervical Radiofrequency Ablation Date of Service: August 23, 2024 Patient:? Hafsa Biswas? Provider:? Kartik Grant DO, MPH Hafsa Biswas has been [facility] to [facility] for LEFT Cervical Radiofrequency Ablation with the [employer]Trifactas Machine.? Pre Operative Diagnosis: Cervical Spondylosis without Myelopathy ICD-10 M47.812 Post Operative Diagnosis: Same Pre procedure pain; VAS= 7/10 Comments: Great relief for >2 years with last RFA. Recent confirmatory block with >80% pain relief for 4-5 hours PROCEDURE: 1. Left C2-C3 (TON) facet joint radiofrequency denervation 2. Left C3-C4 facet joint radiofrequency denervation 3. Left C4-C5 facet joint radiofrequency denervation Magalywas interviewed and the medical record was reviewed.? There were no medical, pharmacologic, radiographic or other structural contraindications to attempting fluoroscopically guided LEFT Cervical Radiofrequency Ablation.?Risks and expected side effects as well as potential benefit of the procedure were reviewed with Hafsa, and the patient's voiced concerns were addressed.? The printed consent form was signed.? Standard time-out procedure was performed. Hafsa was brought to the procedure suite and placed on the exam table in a comfortable lateral recumbent position. A grounding pad was placed on the left abdomen. The place for the needle placement was obtained by manual palpation as well as radiographic confirmation. The sterile field was prepped by chlorhexidine and sterile drapes. Local anesthesia, both superficial and deep was provided by local infiltration of 3 ml Lidocaine 1%. Using fluoroscopic guidance, A 17g 50 mm radiofrequency introducer needle with a 2 mm active tip was placed overlying the left C2 (TON) cervical vertebra from the lateral approach and was advanced until bony contact was felt with the articular pillar. Attempted aspiration revealed no blood or cerebrospinal fluid. Motor testing was then performed with 2.0 volts and no upper extremity motor stimulation was observed. 1 ml of 2% Lidocaine was injected through the RF needle. A radiofrequency lesion of the Left medial branch of C2 (TON) was then performed at 80 degrees Celsius for 2 minutes and 30 seconds. There was no unusual discomfort expressed by Hafsa. The needles were withdrawn without difficulty. Hafsa was observed and was without hemodynamic, neurologic, or allergic reactions. Fluoroscopic images were digitally archived. The same procedure was repeated for Left C3, C4, and C5 medial branches. POST PROCEDURE EVALUATION: IMPRESSION: 1. Medication given is documented in the MAR 2. Follow up plan: Hafsa to contact [facility] as needed. This procedure may be repeated if the patient achieves at least 50% improvement in pain and/or function for at least 6 months. 3. Estimated Blood Loss: <5ml 4. Fluoroscopy time: Documented in the EMR Follow up plans and appointments were discussed with Hafsa. Post procedure instruction was given as documented in nursing documentation and having met discharge criteria, Hafsa was discharged from the [facility]. This advanced procedure uses cooled radiofrequency energy to safely target the sensory nerves responsible for sending pain signals.1 A radiofrequency generator transmits a small current of Radiofrequency energy through an insulated electrode, or probe, placed within tissue. Ionic heating, produced by the friction of charged molecules, thermally deactivates the nerves responsible for sending pain signals to the brain. Radiofrequency energy heats and cools the tissue at the site of pain. Unlike other Radiofrequency procedures, Coolief circulates water through the device while heating nervous tissue to create a larger treatment area, increasing the opportunity to help with pain. This combination targets the pain-transmitting nerves without excessive heating, leading to pain relief. COMMENTS: No apparent complications. Post-procedure pain: VAS= 0/10. I personally performed this entire procedure. KARTIK GRANT DO, MPH ABPM&R - Subspecialty board certification in Pain Medicine [facility] Coding Conscious Sedation used for procedure: Yes CPT Codes: Single Facet Joint, Cervical/Thoracic cool - 10314R (33021H59~G) left Single Facet Joint, Cervical/Thoracic cool each add'l - 98202E ([id number]~G) 2 left levels Additional Codes: Date of Service (88402) Date of service: 08/23/24
== END 2024-08-23 06:58 | disposition home or self-care (01) ==
LOC: PC 06:58
PROVIDERS: PCP Internal Medicine; Visit Provider Preventive Medicine Occupational Medicine
DX: M47.812 Spondylosis without myelopathy or radiculopathy, cervical region (principal); M54.2 Cervicalgia
CPT/HCPCS: 64633; 64634; 72040; J0665; J1100; J2250; J3010